=== PATIENT | male | born 1995 | race Caucasian/White ===

== ENCOUNTER 2017-11-23 20:43 | Emergency (ER) | payer BC, MEDICAID ==
[2017-11-23 20:52] VITALS: BP 127/66
--- NOTE | 2017-11-23 22:19 | EDM.PDOC ---
ED HPI GENERAL MEDICAL PROBLEM - General Chief Complaint: Upper Extremity Injury/Pain Stated Complaint: DISLOCATED SHOULDER Time Seen by Provider: 11/23/17 20:55 Source of Information: Reports: Patient, Family History Limitations: Reports: No Limitations - History of Present Illness INITIAL COMMENTS - FREE TEXT/NARRATIVE: This is a 22-year-old male. He apparently was skateboarding yesterday and fell landing directly on his right shoulder. He complains of soreness and tenderness of the right shoulder and his mother brings him to the ER for evaluation. He states he's has a hard time getting his right hand up over his head due to the soreness in the right shoulder. He denies any head injury denies any neck injury denies any rib pain. He is just here because his right shoulder is hurting. Right Shoulder Pain Score (Numeric/FACES): 8 - Related Data Allergies Allergy/AdvReac Type Severity Reaction Status Date / Time No Known Allergies Allergy Verified 07/20/15 20:39 CDT Home Meds: Home Meds . [No Known Home Meds] 07/20/15 [History] Past Medical History Musculoskeletal History: Reports: Fracture Other Musculoskeletal History: femur right, left eye socket Neurological History: Reports: Concussion - Past Surgical History Other HEENT Surgeries/Procedures: abcess in throat Social & Family History - Family History Family Medical History: Noncontributory - Tobacco Use Smoking Status *Q: Never Smoker - Caffeine Use Caffeine Use: Reports: Coffee - Recreational Drug Use Recreational Drug Use: No Review of Systems - Review of Systems Review Of Systems: See Below Constitutional: Denies: Chills, Fever Eyes: Reports: No Symptoms Ears: Reports: No Symptoms Nose: Reports: No Symptoms Mouth/Throat: Reports: No Symptoms Respiratory: Reports: No Symptoms Cardiovascular: Reports: No Symptoms GI/Abdominal: Reports: No Symptoms Genitourinary: Reports: No Symptoms Musculoskeletal: Reports: Other (As per history of present illness) Skin: Reports: No Symptoms Neurological: Reports: No Symptoms Psychiatric: Reports: No Symptoms ED EXAM, GENERAL - Physical Exam Exam: See Below Exam Limited By: No Limitations General Appearance: Alert, WD/WN, No Apparent Distress Ears: Normal External Exam Nose: Normal Inspection Throat/Mouth: Normal Inspection, Normal Lips, Normal Voice, No Airway Compromise Head: Atraumatic, Normocephalic Neck: Supple Respiratory/Chest: No Respiratory Distress Back Exam: Full Range of Motion Extremities: Other (Right shoulder there is no obvious bruising noted, the before meals joint is nontender on palpation, he is tender over the supraspinatus tendon and lateral deltoid and he is tender over the bicipital tendon anteriorly, he is able to anterior lift his arm parallel to the floor in slightly up over his head laterally he can lift his arm parallel to the floor and in the thumbs down position the pain is not any worse against resistance. From the lateral raising he has a difficult time getting it up over his head due to the soreness, internal/external rotation are nontender.) Neurological: Alert, Oriented Psychiatric: Normal Affect, Normal Mood Skin Exam: Warm, Dry Course - Vital Signs Last Recorded V/S: Last Vital Signs Temp 98.6 F 11/23/17 20:49 Pulse 86 11/23/17 20:49 Resp 18 11/23/17 20:49 BP 127/66 11/23/17 20:49 Pulse Ox 100 11/23/17 20:49 - Orders/Labs/Meds Orders: Active Orders 24 hr Category Date Time Status Shoulder Comp Rt [CR] Stat Exams 11/23/17 21:44 Taken - Radiology Interpretation Free Text/Narrative:: X-ray of the right shoulder does not show any acute fractures. - Re-Assessments/Exams Free Text/Narrative Re-Assessment/Exam: 11/23/17 23:49 I spoke to the patient as well as the mother of the patient with the patient's permission regarding the x-ray results. I encouraged him to follow up with her family doctor and that he has a bicipital tendinitis as well as a rotator cuff strain and if it isn't getting better he'll need to get an MRI by his family doctor. Departure - Departure Time of Disposition: 23:50 Disposition: Home, Self-Care 01 Condition: Good Clinical Impression: Bicipital tendinitis, right shoulder Strain of tendon of right rotator cuff Qualifiers: Encounter type: initial encounter Qualified Code(s): S46.011A - Strain of muscle(s) and tendon(s) of the rotator cuff of right shoulder, initial encounter - Discharge Information Referrals: PCP,None [Primary Care Provider] - Forms: ED Department Discharge Additional Instructions: Gentle activity with the right shoulder over the next 7-14 days, if he doesn't seem to be improving follow up with your family doctor and consider getting an MRI of your right shoulder, you certainly may take some ibuprofen and some Tylenol some Aleve as needed for the soreness, avoid weight lifting with that shoulder but you may do lower body weight lifting, return to the ER if needed - My Orders Last 24 Hours: My Active Orders 11/23/17 21:44 Shoulder Comp Rt [CR] Stat - Assessment/Plan Last 24 Hours: My Active Orders 11/23/17 21:44 Shoulder Comp Rt [CR] Stat
--- NOTE | 2017-11-24 14:30 | CR ---
Right shoulder: Three views of the right shoulder were obtained. Comparison: No previous study. Clavicle is slightly elevated suggesting mild acromioclavicular separation. Glenohumeral joint is unremarkable. No acute fracture or other abnormality is identified. Impression: 1. Minimal acromioclavicular separation. 2. Right shoulder study is otherwise unremarkable. Diagnostic code #3
== END 2017-11-23 23:55 | disposition home or self-care (01) ==
LOC: JD.ED 20:43
DX: S46.011A Strain of muscle(s) and tendon(s) of the rotator cuff of right shoulder, initial encounter (principal); M75.21 Bicipital tendinitis, right shoulder; V00.131A Fall from skateboard, initial encounter; Y93.51 Activity, roller skating (inline) and skateboarding
CPT/HCPCS: 73030-26-RT; 73030-RT; 99283